=== PATIENT | female | born 1950 | race Caucasian/White ===

== ENCOUNTER 2016-10-26 19:57 | Emergency (ER) | payer MEDICARE ==
[~2016-10-26] VITALS: Ht 162.6 cm; Wt 122.7 kg
[2016-10-26 20:01] VITALS: BP 170/86; PULSE 73; RESP 18; O2SAT 95
[2016-10-26] MEDS ORDERED: Ipratropium 0.02% 0.5 mg/2.5 mL Inhalation Solution NEB ONE (20:35)
[2016-10-26] MEDS ORDERED: Albuterol 2.5 mg/3 mL Inhalation Solution NEB ONE (20:35)
[2016-10-26 20:48] VITALS: PULSE 76; RESP 20; O2SAT 94
[2016-10-26] MEDS ORDERED: predniSONE 20 mg Tablet PO ONE (21:00)
--- NOTE | 2016-10-26 21:40 | ED.REPORT ---
HPI-Dyspnea / Wheezing Date of Service Oct 26, 2016 ED Provider: Liborio Melendez MD This is a 66 year old female with a history of asthma, hyperlipidemia, a-fib anticoagulated on Coumadin presenting to the emergency department from urgent care due to shortness of breath that began yesterday night. She used Advair and Mucinex with mild relief. States her symptoms are similar to those with asthma exacerbation previously. Therapeutic INR on check 3 days ago. Pt is on vacation from [place] and flew into town two days ago. Nursing Notes Stated Complaint: ASTHMA/BREATHING ISSUES/SENT FROM URGENT CARE Chief Complaint: Respiratory Complaints Nursing Notes Reviewed: Yes ([employer], [employer] not reconciled - patient on warfarin (reports just had therapeutic INR measured)) Allergies: Coded Allergies: iodine (Verified Allergy, Unknown, 10/26/16) Uncoded Allergies: IVP DYE (Allergy, Unknown, 10/26/16) PENICILLIN (Allergy, Unknown, 10/26/16) Scheduled Azithromycin (Zithromax) 250 Mg Tablet 250 MG PO DAILY To complete 5 day course Prednisone (PredniSONE) 20 Mg Tablet 40 MG PO DAILY General Time Seen by MD: 20:31 Chief Complaint Shortness of breath Hx Obtained From: Patient Arrived By: Walk-in Sudden in Onset?: Yes Onset Occurred: Yesterday Symptom Duration: Since onset Severity: Current: No pain currently Pertinent Negative: Pt denies other symptoms Recent Healthcare: Recent doctor visit Similar Sx Previous: Yes Risk Factors Well's Criteria for PE Well's PE Score: 0-2 pts (low risk 3.6%) Past Medical History Past Medical History Atrial Fibrillation on warfarin Asthma Ambulatory Status Independent Review of Systems Constitutional: Denies: Chills, Fever Ears / Nose / Throat: Denies: Sore throat Respiratory: Reports: Shortness of breath, Denies: Non-productive cough Cardiovascular: Denies: Chest pain Skin: Denies Bruising, Denies Swelling Complete sys rev & neg: except as marked. Neurologic: Denies: Dizziness, Numbness Physical Exam Initial Vital Signs Vital Signs (First) Date Time Temp Pulse Resp B/P Pulse Ox O2 Delivery O2 Flow Rate FiO2 10/26/16 20:01 36.8 73 18 170/86 95 Room Air Initial VS: Reviewed, Vital signs abnormal (HTN) Head / Eyes: Atraumatic, Normocephalic, PERRL ENT: Mucous membranes moist, Conjunctiva normal, No scleral icterus Abdomen / GI: Soft, Non-tender, No guarding, No rebound, No distention Extremities: Vascular intact, Neuro intact, No swelling, No tenderness Skin: Warm, Dry, No cyanosis Neurologic: Alert, Oriented, Nonfocal Psychiatric: Mood/affect normal, Behavior normal, Normal thought content General/Constitutional: Awake, Alert Neck: Atraumatic, Supple, No meningismus, Full range of motion, No swelling, Non-tender, No masses Respiratory / Chest: No respiratory distress, No wheezing Mild bronchospasm on examination Cardiovascular: Heart rate NL, Regular rhythm, Heart sounds NL, Peripheral circulation NL Interpretation & Diagnostics ECG Interpretation ECG Interpretation: ECG NSR at a rate of 69 Time: 21:15 Interpreted by: ED physician X-Ray Chest Interpretation Chest Xray Interpretation: IMPRESSION: Acute disease is not seen in the two-view chest. Air-trapping is not appreciated. Dictated by: Jameson Duran M.D. on 10/26/2016 at 21:47 Approved by: Jameson Duran M.D. on 10/26/2016 at 21:48 Re-Eval/Medical Decision Med Decision/Clinical Course This is a 66-year-old female presents with complaint of some shortness of breath. Patient reports she went to urgent care, and then was referred to the ED with the concern of the possibility of a pulmonary embolism in the differential. This is in the differential comes the patient flew in from [place] - however she has no other risk factors, she is anticoagulated on warfarin and reports a therapeutic INR in the past few days, has no chest pain, and no clinical features to really argue for pulmonary embolus and-stating that she feels like she is having a typical asthma exacerbation like she has had in the past. She is on asthma medications. She reports a mild cough. Reports her who is at home is on antibiotics, and she thinks she needs to be as well. She states there are no atypical features compared with prior asthma exacerbations. She has had no leg symptoms or swelling. Exam she has normal vitals. She has mild bronchospasm-but is not in any visible distress. She is not visibly dyspneic. His normal, chest x-ray is normal. The patient reports she just had lab work drawn demonstrating a therapeutic INR, so not finding an indication she must repeated at this time. The patient simply requested to be treated with an albuterol nebulizer-this was performed and on reevaluation posttreatment she feels much better, and a mild buccal spasm heard initially has now resolved. She has been started on prednisone 40 mg daily and a burst course for 5 days, and although I explained that I did not initially recommend antibiotics-she reiterated her request and concern-and indicated she is thus concerned I would write a prescription. At this point I have a patient who clinically states she thinks her symptoms as asthma and that it is identical to previous asthma exacerbation, his only PE risk factor with a plane flight-in which the patient's already anticoagulated and measured to be therapeutic just before stepping on the plane. Her symptoms resolved without bronchodilator therapy, so I am not finding indications the patient has a pulmonary embolus or needs additional extensive testing or imaging. The patient agrees. My jorden she is low risk by well's criteria. She is discharged with routine precaution. The patient lives and was constant, but does have a house that here she is only visiting for a week this time-but will be out all summer-and is looking to have a local primary care physician for when she is out here month at a time. I have given her referral to Dr. Dietrich for follow up. Source of Hx: Old records Re-Evaluation/Progress : Time of Eval: 21:51 Re-Evaluation/Progress Note: Complete relief with duoneb, would still like antibiotic though I explained that she does not need one Differential Diagnosis: Positive: Asthma, Negative: Carbon monoxide poisoning, Foreign body airway, Hypertensive emergency, Myocardial infarction, Panic attack, Pneumonia, Pneumothorax, Pulmonary embolism, Respiratory failure, Respiratory insufficiency Counseled Regarding: Diagnosis, Lab results, Need for follow-up, When/why to return to ED Discharge & Departure Impression: Primary Impression: Asthma exacerbation Disposition: Home Discharge Condition All VS Reviewed: Yes Condition: Stable Additional Instructions: 1. No pneumonia was appreciated on Xray. 2. You have requested antibiotics - you can take azithromycin 250mg once a day for four more days. 3. Take the steroid prednisone 40mg daily for 5 more days 4. Continue your albuterol - but use the spacer with your inhaler. 5. You can also continue the Muxinex decongestant. 7. You can call for an appointment with Dr. Dietrich (pronounced "Arnel") to establish with a local doctor. 8. Return if new or worsening symptoms Referrals: [facility] Scribe Attestation Portions of this note were transcribed by Arvin Martínez. I, Dr. Melendez personally performed the history, physical exam and medical decision-making; I reviewed and confirmed the accuracy of the information in the transcribed note. Signed by: lorrie Deras. 10/26/2016, 23:30. Liborio Melendez MD Oct 26, 2016 21:40 ARVIN MARTÍNEZ Oct 26, 2016 21:49
--- NOTE | 2016-10-26 21:49 | DRSVH ---
PROCEDURE: X-RAY CHEST ONE VIEW, PORTABLE ([id number]) INDICATIONS: SHORTNESS OF BREATH TECHNIQUE: One view of the chest was acquired. COMPARISON: None. FINDINGS: Surgical changes and devices: None. Lungs and pleura: No pleural effusions or pneumothorax. Lungs are clear. Mediastinum: Mediastinal contours appear normal. Heart size is normal. Bones and chest wall: No suspicious bony lesions. Overlying soft tissues appear unremarkable. IMPRESSION: Acute disease is not seen in the two-view chest. Air-trapping is not appreciated. Dictated by: Jameson Duran M.D. on 10/26/2016 at 21:47 Approved by: Jameson Duran M.D. on 10/26/2016 at 21:48
[2016-10-26] MEDS ORDERED: PRE20 PO (21:57)
[2016-10-26] MEDS ORDERED: ZIT250 PO (21:57)
[2016-10-26 22:22] VITALS: BP 143/93; PULSE 80; RESP 18; O2SAT 95
== END 2016-10-26 22:24 | disposition home or self-care (01) ==
LOC: SED 19:57
DX: J45.901 Unspecified asthma with (acute) exacerbation (principal); I48.91 Unspecified atrial fibrillation; E78.5 Hyperlipidemia, unspecified; Z88.8 Allergy status to other drugs, medicaments and biological substances; J44.9 Chronic obstructive pulmonary disease, unspecified
CPT/HCPCS: 71010; 93005; 94644; 99284; J7613

== ENCOUNTER 2016-10-29 00:30 | Emergency (ER) | payer MEDICARE ==
[~2016-10-29] VITALS: Ht 163.8 cm; Wt 125.9 kg
[~2016-10-29 00:30] MED LIST: PRE20 PO; ZIT250 PO
[2016-10-29 00:34] VITALS: BP 129/86; PULSE 73; RESP 24; O2SAT 95
--- NOTE | 2016-10-29 00:45 | ED.REPORT ---
HPI-Dyspnea / Wheezing Date of Service Oct 29, 2016 ED Provider: Dr. Lane 66 y/o female with a history of asthma and atrial fibrillation following a prior surgery, hypercholesterolemia and HTN presents to the ER complaining of shortness of breath, onset Wednesday night, which worsened Wednesday morning. She states that she was seen here in the ER three days ago for similar, and at the walk-in clinic earlier today. At her clinic visit she received breathing treatments and was told to return to the ER if her O2 saturation dropped below 90%.Since her clinic visit she has developed productive cough with yellow sputum , and nasal congestion. Patient denies any chest pain, fever, chills, vomiting, and abdominal pain. Currently on a course of prednisone and azithromycin. Nursing Notes Stated Complaint: DIFFICULTY BREATHING Chief Complaint: Respiratory Distress Nursing Notes Reviewed: Yes Allergies: Coded Allergies: Penicillins (Verified Allergy, Unknown, hives, 10/29/16) iodine (Verified Allergy, Unknown, 10/26/16) Uncoded Allergies: IVP DYE (Allergy, Unknown, 10/26/16) PENICILLIN (Allergy, Unknown, 10/26/16) Scheduled Azithromycin (Zithromax) 250 Mg Tablet 250 MG PO DAILY To complete 5 day course Prednisone (PredniSONE) 20 Mg Tablet 40 MG PO DAILY General Time Seen by MD: 00:44 Chief Complaint Shortness of breath Hx Obtained From: Patient Arrived By: Walk-in Sudden in Onset?: No Onset Occurred: 4 days ago Symptom Duration: Since onset Associated with: Reports: Cough, Nasal congestion, Denies: Fever Context Asthma History: Asthma diagnosed Similar Sx Previous: Yes Past Medical History Past Medical History Reports: Asthma, Hyperlipidemia, Hypertension Reports: Atrial fibrillation Smoking History Unknown if Ever Smoker Ambulatory Status Independent Review of Systems Basic Review of Systems Eyes: Vision NL, No discharge GI: No abdominal pain, No nausea, No vomiting Constitutional: Denies: Chills, Fever Ears / Nose / Throat: Reports: Nasal congestion Respiratory: Reports: Prod cough, yellow, Shortness of breath Cardiovascular: Denies: Chest pain Complete sys rev & neg: except as marked. Physical Exam Initial Vital Signs Vital Signs (First) Date Time Temp Pulse Resp B/P Pulse Ox O2 Delivery O2 Flow Rate FiO2 10/29/16 00:34 36.2 73 24 129/86 95 Room Air Initial VS: Reviewed Head / Eyes: Atraumatic, Normocephalic, PERRL Abdomen / GI: Soft, Non-tender, No guarding, No rebound, No distention Extremities: Vascular intact, Neuro intact, No swelling, No tenderness General/Constitutional: Awake, Alert, Well developed, Well nourished Behavior: Positive: Anxious Neck: Atraumatic, Supple, No meningismus, Full range of motion, No swelling, Non-tender, No masses Respiratory / Chest: No wheezing Resp Distress / Stridor: Positive: Resp distress mild Prolonged Expiratory Phase Cardiovascular: Heart rate NL, Regular rhythm, Heart sounds NL, Peripheral circulation NL Skin: Color NL, No rash, Warm, Dry, Turgor NL Neurologic: Oriented X3, Speech NL, No motor deficits, No sensory deficits Interpretation & Diagnostics X-Ray Chest Interpretation Chest Xray Interpretation: Mild right lower lobe opacity. View: AP & lat Interpretation / Wet Read by: Wet read ED physician Re-Eval/Medical Decision Med Decision/Clinical Course 66-year-old female with past medical history of asthma here with shortness of breath. Differential diagnosis includes but is not limited to asthma exacerbation versus pneumonia versus pleural effusion versus anxiety. Patient had prolonged expiratory phase on auscultation. She was given a DuoNeb, with some improvement. She has not been using her albuterol inhaler at home scheduled. I have advised her to take her albuterol inhaler at home every 4 hours for the next 48 hours. She was given a Zithromax and prednisone prescriptions 2 days ago. She is feeling much better now, and is amenable to discharge. I have advised her to take her inhaler and continue to take her current medications. She has been given very strict return precautions Re-Evaluation/Progress : Time of Eval: 01:40 Re-Evaluation/Progress Note: Patient's breathing is improved. Discussed chest x-ray and plan for discharge. Patient is amenable to the plan. Return precautions given. All other questions addressed. Counseled Regarding: Diagnosis, Need for follow-up, When/why to return to ED Discharge & Departure Impression: Primary Impression: Asthma exacerbation Disposition: Home Discharge Condition All VS Reviewed: Yes Condition: Stable Patient Instructions: Asthma (DC) Additional Instructions: Use albuterol inhaler with spacer every 4 hours for the next 48 hours. Keep taking your other medications as prescribed. Return to the ER if you develop worsening or concerning symptoms. Referrals: OTHER,PHYSICIAN (PCP) (Family) Scribe Attestation Portions of this note were transcribed by Alysia Cedeno and Renaldo Niño. I, Dr. Lane, personally performed the history, physical exam and medical decision- making; I reviewed and confirmed the accuracy of the information in the transcribed note. Signed by: Dawna Luz. 10/29/2016 - 01:[address] MD Oct 29, 2016 00:44 Alysia Cedeno Oct 29, 2016 00:52 RENALDO NIÑO Oct 29, 2016 01:16
[2016-10-29] MEDS ORDERED: Albuterol-Ipratropium 3 mL Inhalation Solution NEB ONE (01:00)
[2016-10-29 01:04] VITALS: RESP 18; O2SAT 95
[2016-10-29 02:13] VITALS: BP 128/72; PULSE 84; RESP 16; O2SAT 97
--- NOTE | 2016-10-29 08:25 | DRSVH ---
PROCEDURE: X-RAY CHEST, TWO VIEWS ([id number]) INDICATIONS: SHORT OF BREATH TECHNIQUE: 2 views of the chest were acquired. COMPARISON: [facility], CR, XR CHEST 1VW (PORTABLE), 10/26/2016, 21:05. FINDINGS: Surgical changes and devices: None. Lungs and pleura: No pleural effusions or pneumothorax. Peribronchial cuffing is present in the joe hilar locations. Mediastinum: Mediastinal contours are normal. Heart size is normal. Bones and chest wall: No suspicious bony abnormalities. Soft tissues appear unremarkable. IMPRESSION: Bronchitis. Dictated by: Jolanta Crandall M.D. on 10/29/2016 at 8:23 Approved by: Jolanta Crandall M.D. on 10/29/2016 at 8:24
== END 2016-10-29 02:14 | disposition home or self-care (01) ==
LOC: SED 00:30
DX: J45.901 Unspecified asthma with (acute) exacerbation (principal); I11.9 Hypertensive heart disease without heart failure; I48.91 Unspecified atrial fibrillation; E78.5 Hyperlipidemia, unspecified; Z88.0 Allergy status to penicillin; Z88.8 Allergy status to other drugs, medicaments and biological substances
CPT/HCPCS: 71020; 94664; 99284; J7620